=== PATIENT | female | born 1985 | race Caucasian/White ===

== ENCOUNTER 2022-02-15 04:22 | Emergency (ER) | payer SELFPAY ==
[~2022-02-15] VITALS: Ht 160 cm; Wt 64.0 kg
[2022-02-15 05:56] VITALS: BP 142/99
== END 2022-02-15 06:55 | disposition left against medical advice (07) ==
LOC: ER 04:22
DX: R10.9 Unspecified abdominal pain (principal); R51.9 Headache, unspecified; R11.0 Nausea; Z53.21 Procedure and treatment not carried out due to patient leaving prior to being seen by health care provider